=== PATIENT | female | born 1960 | race Caucasian/White ===

== ENCOUNTER 2021-03-01 15:38 | Emergency (ER) | payer OTHER ==
[~2021-03-01] VITALS: Ht 157.5 cm; Wt 56.4 kg
[2021-03-01 16:18] VITALS: BP 121/68
[2021-03-01] MEDS ORDERED: ALBU18HF2 INH (16:31)
[2021-03-01] MEDS ORDERED: BENZ-16 PO (16:31)
== END 2021-03-01 16:57 | disposition home or self-care (01) ==
LOC: ER 15:38
DX: U07.1 COVID-19 (principal); R06.02 Shortness of breath; R53.83 Other fatigue; R51.9 Headache, unspecified; R05 Cough; R50.9 Fever, unspecified; Z88.5 Allergy status to narcotic agent; Z79.899 Other long term (current) drug therapy
CPT/HCPCS: 99283